=== PATIENT | female | born 1980 | race Caucasian/White ===

== ENCOUNTER 2017-11-12 10:59 | Emergency (ER) | payer MEDICAID ==
--- NOTE | 2017-11-12 11:11 | EDM.PDOC ---
ED HPI GENERAL MEDICAL PROBLEM - General Chief Complaint: Gastrointestinal Problem Stated Complaint: VOMITING Time Seen by Provider: 11/12/17 11:06 - History of Present Illness INITIAL COMMENTS - FREE TEXT/NARRATIVE: HISTORY AND PHYSICAL: History of present illness: Patient 36-year-old female presents with concerns generalized body aches nausea and vomiting she's had no cough sore throat or other concern she denies any chance of she's had no urinary symptoms no vaginal discharge or irregular bleeding. Review of systems: As per history of present illness and below otherwise all systems reviewed and negative. Past medical history: As per history of present illness and as reviewed below otherwise noncontributory. Surgical history: As per history of present illness and as reviewed below otherwise noncontributory. Social history: No reported history of drug or alcohol abuse. Family history: As per history of present illness and as reviewed below otherwise noncontributory. Physical exam: HEENT: Atraumatic, normocephalic, pupils reactive, negative for conjunctival pallor or scleral icterus, mucous membranes moist, throat clear, neck supple, nontender, trachea midline. Lungs: Clear to auscultation, breath sounds equal bilaterally, chest nontender. Heart: S1S2, regular, negative for clicks, rubs, or JVD. Abdomen: Soft, nondistended, nontender. Negative for masses or hepatosplenomegaly. Negative for costovertebral tenderness. Pelvis: Stable nontender. Genitourinary: Deferred. Rectal: Deferred. Extremities: Atraumatic, negative for cords or calf pain. Neurovascular unremarkable. Neuro: Awake, alert, oriented. Cranial nerves II through XII unremarkable. Cerebellum unremarkable. Motor and sensory unremarkable throughout. Exam nonfocal. Diagnostics: Influenza screen Therapeutics: Zofran 4 mg ODT Impression: #1 Vomiting #2 myalgia probable viral syndrome Definitive disposition and diagnosis as appropriate pending reevaluation and review of above. ED ROS GENERAL - Review of Systems Review Of Systems: ROS reveals no pertinent complaints other than HPI. ED EXAM, GENERAL - Physical Exam Exam: See Below (See dictation) Departure - Departure Time of Disposition: 11:10 Disposition: Home, Self-Care 01 Condition: Good Clinical Impression: Vomiting, Viral syndrome - Discharge Information Referrals: PCP,None [Primary Care Provider] - Additional Instructions: The following information is given to patients seen in the emergency department who are being discharged to home. This information is to outline your options for follow-up care. We provide all patients seen in our emergency department with a follow-up referral. The need for follow-up, as well as the timing and circumstances, are variable depending upon the specifics of your emergency department visit. If you don't have a primary care physician on staff, we will provide you with a referral. We always advise you to contact your personal physician following an emergency department visit to inform them of the circumstance of the visit and for follow-up with them and/or the need for any referrals to a consulting specialist. The emergency department will also refer you to a specialist when appropriate. This referral assures that you have the opportunity for followup care with a specialist. All of these measure are taken in an effort to provide you with optimal care, which includes your followup. Under all circumstances we always encourage you to contact your private physician who remains a resource for coordinating your care. When calling for followup care, please make the office aware that this follow-up is from your recent emergency room visit. If for any reason you are refused follow-up, please contact the [facility] emergency department at and asked to speak to the emergency department charge nurse. Zofran as prescribed push fluids clear liquids as discussed follow-up private medical doctor wanted today's return as needed as discussed
[2017-11-12] MEDS ORDERED: Ondansetron 4 MG Tab.DIS PO ONE (11:14)
== END 2017-11-12 11:59 | disposition home or self-care (01) ==
LOC: MW.ED 10:59
DX: B34.9 Viral infection, unspecified (principal); M79.1 Myalgia
CPT/HCPCS: 87804; 99283; A9270

== ENCOUNTER 2017-11-12 19:27 | Emergency (ER) | payer MEDICAID ==
[2017-11-12] MEDS ORDERED: LORazepam 2 MG/ML SDV IM ONE (20:01)
[2017-11-12] MEDS ORDERED: diphenhydrAMINE 50 MG Cap PO ONE (20:02)
[2017-11-12] MEDS ORDERED: Ketorolac 60 MG/2 ML SDV IM ONE (20:03)
[2017-11-12] MEDS ORDERED: Prochlorperazine 10 MG Tab PO ONE (20:03)
[2017-11-12] MEDS ORDERED: Prochlorperazine 10 MG/2 ML SDV IM ONE (20:07)
--- NOTE | 2017-11-12 20:07 | EDM.PDOC ---
ED HPI GENERAL MEDICAL PROBLEM - General Chief Complaint: Headache Stated Complaint: MIGRAINE Time Seen by Provider: 11/12/17 20:04 Source of Information: Reports: Patient History Limitations: Reports: No Limitations - History of Present Illness INITIAL COMMENTS - FREE TEXT/NARRATIVE: HISTORY AND PHYSICAL: []36-year-old female presenting with migraine headache since last night History of Present Illness: []Patient does have history of having migraines in the past and has been treated with the Benadryl Toradol combination Review of Systems: As per history of present illness and below otherwise all systems reviewed and negative. Past medical history: As per history of present illness and as reviewed below otherwise noncontributory. Surgical history: As per history of present illness and as reviewed below otherwise noncontributory. Social history: No reported history of drug or alcohol abuse. Family history: As per history of present illness and as reviewed below otherwise noncontributory. Physical exam: Patient is photophobic she is alert answering questions appropriately in full sentences no shortness breath noted HEENT: Atraumatic, normocehpalic, pupils reactive, negative for conjunctival pallor or scleral icterus, mucous membranes moist, throat clear, neck supple, nontender, trachea midline. Sclerae erythematous Lungs: Clear to auscultation, breath sounds equal bilaterally, chest non tender. Heart: S1S2, regular, negative for clicks, rubs, or JVD. Abdomen: Soft, nondistended, nontender. Negative for masses or hepatossplenmegaly. Negative for costovertebral tenderness. Pelvis: Stable nontender. Genitourinary: Deferred. Rectal: Deferred Extremities: Atraumatic, negative for cords or calf pain. Neurovascular unremarkable. Neuro: Awake, alert, oriented. Cranial nerves II through XII unremarkable. Cerebellum unremarkable. Motor and sensory unremarkable throughout. Exam nonfocal. Diagnostics: [] Therapeutics: []Toradol IM Ativan IM Benadryl by mouth Compazine by mouth Impression: [Migraine headache] Plan: [Discharged to home Sleep Follow-up with your primary care] Definitive disposition and diagnosis as appropriate pending reevaluation and review of above. Onset: Today, Sudden Duration: Hour(s):, Getting Worse Location: Reports: Head Headache Pain Score (Numeric/FACES): 10 - Related Data Allergies Allergy/AdvReac Type Severity Reaction Status Date / Time albuterol Allergy Airway Verified 12/23/17 19:36 Tightness morphine Allergy Itching Verified 11/12/17 19:36 Sulfa (Sulfonamide Allergy Bronchospas Verified 11/12/17 19:36 Antibiotics) ms Home Meds: Home Meds . [No Known Home Meds] 11/12/17 [History] Past Medical History Neurological History: Reports: Migraines Psychiatric History: Reports: Anxiety, Depression Social & Family History - Family History Family Medical History: Noncontributory - Tobacco Use Smoking Status *Q: Never Smoker - Caffeine Use Caffeine Use: Reports: Soda - Recreational Drug Use Recreational Drug Use: No ED ROS GENERAL - Review of Systems Review Of Systems: ROS reveals no pertinent complaints other than HPI. - Physical Exam Exam: See Below (See dictation) Course - Vital Signs Last Recorded V/S: Last Vital Signs Temp 36.3 C 11/12/17 19:37 Pulse 68 11/12/17 19:37 Resp 18 11/12/17 19:37 BP 125/76 11/12/17 19:37 Pulse Ox 94 L 11/12/17 19:37 - Orders/Labs/Meds Orders: Active Orders 24 hr Category Date Time Status Ketorolac [Toradol] Med 11/12/17 20:03 Once 60 mg IM ONETIME ONE Prochlorperazine [Compazine] Med 11/12/17 20:03 Once 10 mg PO ONETIME ONE Medication Orders Ketorolac Tromethamine (Toradol) 60 mg IM ONETIME ONE Stop: 11/12/17 20:04 Prochlorperazine Maleate (Compazine) 10 mg PO ONETIME ONE Stop: 11/12/17 20:04 Meds: Medications Generic Name Dose Route Start Last Admin Trade Name Freq PRN Reason Stop Dose Admin Ketorolac Tromethamine 60 mg 11/12/17 20:03 Toradol IM 11/12/17 20:04 ONETIME ONE Prochlorperazine Maleate 10 mg 11/12/17 20:03 Compazine PO 11/12/17 20:04 ONETIME ONE Discontinued Medications Generic Name Dose Route Start Last Admin Trade Name Freq PRN Reason Stop Dose Admin Diphenhydramine HCl 50 mg 11/12/17 20:02 Benadryl PO 11/12/17 20:03 ONETIME ONE Lorazepam 1 mg 11/12/17 20:01 Ativan IM 11/12/17 20:02 ONETIME ONE Departure - Departure Time of Disposition: 20:06 Disposition: Home, Self-Care 01 Condition: Good Clinical Impression: Migraine - Discharge Information Referrals: PCP,None [Primary Care Provider] - Additional Instructions: The following information is given to patients seen in the emergency department who are being discharged to home. This information is to outline your options for follow-up care. We provide all patients seen in our emergency department with a follow-up referral. The need for follow-up, as well as the timing and circumstances, are variable depending upon the specifics of your emergency department visit. If you don't have a primary care physician on staff, we will provide you with a referral. We always advise you to contact your personal physician following an emergency department visit to inform them of the circumstance of the visit and for follow-up with them and/or the need for any referrals to a consulting specialist. The emergency department will also refer you to a specialist when appropriate. This referral assures that you have the opportunity for followup care with a specialist. All of these measure are taken in an effort to provide you with optimal care, which includes your followup. Under all circumstances we always encourage you to contact your private physician who remains a resource for coordinating your care. When calling for followup care, please make the office aware that this follow-up is from your recent emergency room visit. If for any reason you are refused follow-up, please contact the [facility] emergency department at and asked to speak to the emergency department charge nurse. Your treated for your migraine headache while in the emergency department Follow-up with your primary care provider next week - My Orders Last 24 Hours: My Active Orders 11/12/17 20:03 Ketorolac [Toradol] 60 mg IM ONETIME ONE Prochlorperazine [Compazine] 10 mg PO ONETIME ONE - Assessment/Plan Last 24 Hours: My Active Orders 11/12/17 20:03 Ketorolac [Toradol] 60 mg IM ONETIME ONE Prochlorperazine [Compazine] 10 mg PO ONETIME ONE
== END 2017-11-12 20:25 | disposition home or self-care (01) ==
LOC: MW.ED 19:27
DX: G43.909 Migraine, unspecified, not intractable, without status migrainosus (principal); Z88.5 Allergy status to narcotic agent; Z88.2 Allergy status to sulfonamides
CPT/HCPCS: 96372; 99283; A9270; J0780; J1885; J2060

== ENCOUNTER 2018-05-09 10:21 | Emergency (ER) | payer MEDICAID ==
[2018-05-09] MEDS ORDERED: LORazepam 1 MG Tab PO ONE (10:47)
[2018-05-09] MEDS ORDERED: diphenhydrAMINE 50 MG Cap PO ONE (10:48)
[2018-05-09] MEDS ORDERED: Prochlorperazine 10 MG/2 ML SDV IM ONE (10:48)
--- NOTE | 2018-05-09 10:48 | EDM.PDOC ---
ED HPI GENERAL MEDICAL PROBLEM - General Chief Complaint: Headache Stated Complaint: HEADACHE,NAUSEA,VOMITING Time Seen by Provider: 05/09/18 10:44 Source of Information: Reports: Patient History Limitations: Reports: No Limitations - History of Present Illness INITIAL COMMENTS - FREE TEXT/NARRATIVE: HISTORY AND PHYSICAL: []37-year-old female presenting with a migraine headache History of Present Illness: []Patient has had similar headaches in the past this is not different she awakened yesterday with this headache She began having vomiting last night with a awakened this morning and the headache is still present stripe your pain as a 08/30 She was seen recently in the emergency department and the medication regimen that she was given at that time did She relates that she has a ride to pick her up And she states that she has her girlfriend watching her children at this time she will be able to go home and sleep Review of Systems: As per history of present illness and below otherwise all systems reviewed and negative. Past medical history: As per history of present illness and as reviewed below otherwise noncontributory. Surgical history: As per history of present illness and as reviewed below otherwise noncontributory. Social history: No reported history of drug or alcohol abuse. Family history: As per history of present illness and as reviewed below otherwise noncontributory. Physical exam: HEENT: Atraumatic, normocehpalic, pupils reactive, negative for conjunctival pallor or scleral icterus, mucous membranes moist, throat clear, neck supple, nontender, trachea midline. Lungs: Clear to auscultation, breath sounds equal bilaterally, chest non tender. Heart: S1S2, regular, negative for clicks, rubs, or JVD. Abdomen: Soft, nondistended, nontender. Negative for masses or hepatossplenmegaly. Negative for costovertebral tenderness. Pelvis: Stable nontender. Genitourinary: Deferred. Rectal: Deferred Extremities: Atraumatic, negative for cords or calf pain. Neurovascular unremarkable. Neuro: Awake, alert, oriented. Cranial nerves II through XII unremarkable. Cerebellum unremarkable. Motor and sensory unremarkable throughout. Exam nonfocal. Diagnostics: [] Therapeutics: []Ativan by mouth Benadryl by mouth Compazine IM Toradol IM Impression: []Headache Plan: []Discharged home Referred to Dr. Roxann Randolph for follow-up evaluation Definitive disposition and diagnosis as appropriate pending reevaluation and review of above. Onset: Sudden Duration: Day(s): (1), Getting Worse Location: Reports: Head Quality: Reports: Same as Previous Episode Improves with: Reports: None Worsens with: Reports: Movement Associated Symptoms: Reports: Nausea/Vomiting Head Pain Score (Numeric/FACES): 10 - Related Data Allergies Allergy/AdvReac Type Severity Reaction Status Date / Time albuterol Allergy Airway Verified 05/09/18 10:30 Tightness morphine Allergy Itching Verified 05/09/18 10:30 Sulfa (Sulfonamide Allergy Bronchospas Verified 05/09/18 10:30 Antibiotics) ms Home Meds: Home Meds . [No Known Home Meds] 11/12/17 [History] Past Medical History Neurological History: Reports: Migraines Psychiatric History: Reports: Anxiety, Depression - Infectious Disease History Infectious Disease History: Reports: None Social & Family History - Family History Family Medical History: Noncontributory - Tobacco Use Smoking Status *Q: Never Smoker - Caffeine Use Caffeine Use: Reports: Coffee, Soda - Recreational Drug Use Recreational Drug Use: No ED ROS GENERAL - Review of Systems Review Of Systems: ROS reveals no pertinent complaints other than HPI. - Physical Exam Exam: See Below (See dictation) Course - Vital Signs Last Recorded V/S: Last Vital Signs Temp 36.2 C 05/09/18 10:30 Pulse 77 05/09/18 10:30 Resp 14 05/09/18 10:30 BP 124/85 05/09/18 10:30 Pulse Ox 95 05/09/18 10:30 - Orders/Labs/Meds Orders: Active Orders 24 hr Category Date Time Status Ketorolac [Toradol] Med 05/09/18 10:49 Once 60 mg IM ONETIME ONE Medication Orders Ketorolac Tromethamine (Toradol) 60 mg IM ONETIME ONE Stop: 05/09/18 10:50 Meds: Medications Generic Name Dose Route Start Last Admin Trade Name Freq PRN Reason Stop Dose Admin Ketorolac Tromethamine 60 mg 05/09/18 10:49 Toradol IM 05/09/18 10:50 ONETIME ONE Discontinued Medications Generic Name Dose Route Start Last Admin Trade Name Freq PRN Reason Stop Dose Admin Diphenhydramine HCl 50 mg 05/09/18 10:48 Benadryl PO 05/09/18 10:49 ONETIME ONE Lorazepam 1 mg 05/09/18 10:47 Ativan PO 05/09/18 10:48 ONETIME ONE Prochlorperazine Edisylate 10 mg 05/09/18 10:48 Compazine IM 05/09/18 10:49 ONETIME ONE Departure - Departure Time of Disposition: 10:47 Disposition: Home, Self-Care 01 Condition: Good Clinical Impression: Migraine - Discharge Information Instructions: Recurrent Migraine Headache, [id number] Referrals: PCP,None [Primary Care Provider] - Roxann Randolph MD [Physician] - Forms: ED Department Discharge - My Orders Last 24 Hours: My Active Orders 05/09/18 10:49 Ketorolac [Toradol] 60 mg IM ONETIME ONE - Assessment/Plan Last 24 Hours: My Active Orders 05/09/18 10:49 Ketorolac [Toradol] 60 mg IM ONETIME ONE
[2018-05-09] MEDS ORDERED: Ketorolac 60 MG/2 ML SDV IM ONE (10:49)
== END 2018-05-09 11:33 | disposition home or self-care (01) ==
LOC: MW.ED 10:21
DX: G43.909 Migraine, unspecified, not intractable, without status migrainosus (principal); Z88.5 Allergy status to narcotic agent; Z88.8 Allergy status to other drugs, medicaments and biological substances
CPT/HCPCS: 96372; 99283; A9270; J0780; J1885

== ENCOUNTER 2019-01-11 19:15 | Emergency (ER) | payer MEDICAID ==
--- NOTE | 2019-01-11 20:18 | EDM.PDOC ---
ED HPI GENERAL MEDICAL PROBLEM - General Chief Complaint: Genitourinary Problem Stated Complaint: PT HAS INFECTION Time Seen by Provider: 01/11/19 20:08 - History of Present Illness INITIAL COMMENTS - FREE TEXT/NARRATIVE: HISTORY AND PHYSICAL: History of present illness: Patient 38-year-old white female presents with concern of possible skin infection she had 2 skin tags removed from her right labia yesterday the sutures that were in place a single suture and 1 per patient dehisced. She's concerned about infection has had some minor pain with this. Review of systems: As per history of present illness and below otherwise all systems reviewed and negative. Past medical history: As per history of present illness and as reviewed below otherwise noncontributory. Surgical history: As per history of present illness and as reviewed below otherwise noncontributory. Social history: No reported history of drug or alcohol abuse. Family history: As per history of present illness and as reviewed below otherwise noncontributory. Physical exam: HEENT: Atraumatic, normocephalic, pupils reactive, negative for conjunctival pallor or scleral icterus, mucous membranes moist, throat clear, neck supple, nontender, trachea midline. Lungs: Clear to auscultation, breath sounds equal bilaterally, chest nontender. Heart: S1S2, regular, negative for clicks, rubs, or JVD. Abdomen: Soft, nondistended, nontender. Negative for masses or hepatosplenomegaly. Negative for costovertebral tenderness. Pelvis: Stable nontender. Genitourinary: Patient has 2 small areas of excoriation on her right labia approximately less than 1 cm there is some small erythema. No fluctuance no induration Rectal: Deferred. Extremities: Atraumatic, negative for cords or calf pain. Neurovascular unremarkable. Neuro: Awake, alert, oriented. Cranial nerves II through XII unremarkable. Cerebellum unremarkable. Motor and sensory unremarkable throughout. Exam nonfocal. Diagnostics: None Therapeutics: None Impression: #1 medical screening exam #2 rule out early superficial cellulitis right labia Definitive disposition and diagnosis as appropriate pending reevaluation and review of above. vaginal area Pain Score (Numeric/FACES): 10 - Related Data Allergies Allergy/AdvReac Type Severity Reaction Status Date / Time albuterol Allergy Airway Verified 01/11/19 20:08 Tightness morphine Allergy Itching Verified 01/11/19 20:08 Sulfa (Sulfonamide Allergy Bronchospas Verified 01/11/19 20:08 Antibiotics) ms Home Meds: Home Meds . [No Known Home Meds] 11/12/17 [History] Past Medical History Neurological History: Reports: Migraines Psychiatric History: Reports: Anxiety, Depression - Infectious Disease History Infectious Disease History: Reports: None Social & Family History - Family History Family Medical History: Noncontributory - Caffeine Use Caffeine Use: Reports: Coffee, Soda ED ROS GENERAL - Review of Systems Review Of Systems: ROS reveals no pertinent complaints other than HPI. ED EXAM, GENERAL - Physical Exam Exam: See Below (See dictation) Course - Vital Signs Last Recorded V/S: Last Vital Signs Temp 36.1 C 01/11/19 20:08 Pulse 74 01/11/19 20:08 Resp 18 01/11/19 20:08 BP 110/90 01/11/19 20:08 Pulse Ox 98 01/11/19 20:08 Departure - Departure Time of Disposition: 20:14 Disposition: Home, Self-Care 01 Condition: Good Clinical Impression: Cellulitis - Discharge Information Referrals: PCP,None [Primary Care Provider] - Additional Instructions: The following information is given to patients seen in the emergency department who are being discharged to home. This information is to outline your options for follow-up care. We provide all patients seen in our emergency department with a follow-up referral. The need for follow-up, as well as the timing and circumstances, are variable depending upon the specifics of your emergency department visit. If you don't have a primary care physician on staff, we will provide you with a referral. We always advise you to contact your personal physician following an emergency department visit to inform them of the circumstance of the visit and for follow-up with them and/or the need for any referrals to a consulting specialist. The emergency department will also refer you to a specialist when appropriate. This referral assures that you have the opportunity for followup care with a specialist. All of these measure are taken in an effort to provide you with optimal care, which includes your followup. Under all circumstances we always encourage you to contact your private physician who remains a resource for coordinating your care. When calling for followup care, please make the office aware that this follow-up is from your recent emergency room visit. If for any reason you are refused follow-up, please contact the [facility] emergency department at and asked to speak to the emergency department charge nurse. Ultram Keflex as prescribed follow primary medical doctor as needed as discussed local wound care as discussed return as needed as discussed
== END 2019-01-11 20:25 | disposition home or self-care (01) ==
LOC: MW.ED 19:15
DX: N76.2 Acute vulvitis (principal); Z88.8 Allergy status to other drugs, medicaments and biological substances; Z88.5 Allergy status to narcotic agent; Z88.2 Allergy status to sulfonamides
CPT/HCPCS: 99283

== ENCOUNTER 2019-11-26 14:29 | Emergency (ER) | payer MEDICAID ==
[2019-11-26] MEDS ORDERED: Acetaminophen/Codeine 300-30 MG Tab PO ONE (15:28)
--- NOTE | 2019-11-26 15:41 | EDM.PDOC ---
ED HPI GENERAL MEDICAL PROBLEM - General Chief Complaint: Lower Extremity Injury/Pain Stated Complaint: SWELLING/BRUISING ON CALF Time Seen by Provider: 11/26/19 15:20 Source of Information: Reports: Patient History Limitations: Reports: No Limitations - History of Present Illness INITIAL COMMENTS - FREE TEXT/NARRATIVE: HISTORY AND PHYSICAL: History of present illness: Patient is a 39-year-old female who presents to the emergency room today with complaints of left calf pain and tenderness. She states yesterday she noticed discomfort but that she may have pulled a muscle or hit it on something (doesn' t recall injury/trauma). Last evening she states the area was red and hot to touch. Today the calf is tender to palpation and semi-firm to touch. Patient denies any fever, chills, headache, change in vision, syncope or near syncope. Denies any chest pain, back pain, shortness of breath or cough. Denies any abdominal pain, nausea, vomiting, diarrhea, constipation or dysuria. Has not noted any blood in urine or stool. Patient has been eating and drinking appropriately. No recent travel or long periods of standing/sitting. No hormone replacement therapy. No known personal or familial history of blood/clotting disorders. Review of systems: As per history of present illness and below otherwise all systems reviewed and negative. Past medical history: As per history of present illness and as reviewed below otherwise noncontributory. Surgical history: As per history of present illness and as reviewed below otherwise noncontributory. Social history: See social history for further information Family history: As per history of present illness and as reviewed below otherwise noncontributory. Physical exam: General: Well-developed well-nourished 39-year-old female. Alert and oriented. Nontoxic-appearing and in no acute distress HEENT: Atraumatic, normocephalic, pupils equal and reactive bilaterally, negative for conjunctival pallor or scleral icterus, mucous membranes moist, TMs normal bilaterally, throat clear, neck supple, nontender, trachea midline. No drooling or trismus noted. No meningeal signs. No hot potato voice noted. Lungs: Clear to auscultation, breath sounds equal bilaterally, chest nontender. Heart: S1S2, regular rate and rhythm without overt murmur Abdomen: Soft, nondistended, nontender. Negative for masses or hepatosplenomegaly. Negative for costovertebral tenderness. Skin: Intact, warm, dry. No lesions or rashes noted. Extremities: Atraumatic, moves all extremities per self without difficulty or deficits, negative for cords. Does have tenderness to the mid belly of the left calf and does feel semi-firm to palpation with light bruising noted. Neurovascular unremarkable. Neuro: Awake, alert, oriented. Cranial nerves II through XII unremarkable. Cerebellum unremarkable. Motor and sensory unremarkable throughout. Exam nonfocal. Notes: Lab work is unremarkable. US shows a blood clot within the lesser saphenous vein compatible with superficial thrombophlebitis. No evidence of DVT. I did talk with Dr. Ram about performing some labs that would be available for primary care for further evaluation and she does not have very many risk factors for blood clot. Anticoagulation is not contraindicated. Nursing staff did call to set her up a follow-up appointment. Signs ans symptoms that would prompt her to return were reviewed and discussed. Supportive care measures were reviewed and discussed. Voices understanding and is agreeable to plan of care. Denies any further questions or concerns at this time. Diagnostics: CBC, CMP, ultrasound lower extremity Therapeutics: Tylenol #3, Lovenox Prescription: Tramadol, Eliquist Impression: Superficial thrombophlebitis Plan: 1. Eliquis 5mg twice daily; limited amount prescribed. Length of need with be determined by your primary care provider. We made you a follow up appointment with Dr Evans at [facility] 3:45pm on Tuesday11/28/2018. Make sure you ask if you need further refills of the Eliquis 2. Your outpatient labs should be available to her at that time. 3. Rest and elevate lower extremity as able. 4. Return to the ED as needed as discussed. Definitive disposition and diagnosis as appropriate pending reevaluation and review of above. L calf Pain Score (Numeric/FACES): 10 - Related Data Allergies Allergy/AdvReac Type Severity Reaction Status Date / Time albuterol Allergy Airway Verified 11/26/19 14:41 Tightness morphine Allergy Itching Verified 11/26/19 14:41 Sulfa (Sulfonamide Allergy Bronchospas Verified 11/26/19 14:41 Antibiotics) ms Home Meds: Home Meds Apixaban [Eliquis] 5 mg PO BID #14 tablet 11/26/19 [Rx] Mirtazapine 25 mg PO ASDIRECTED 11/26/19 [History] QUEtiapine Fumarate [Seroquel] 50 mg PO ASDIRECTED 11/26/19 [History] hydrOXYzine HCL [Atarax] 50 mg PO ASDIRECTED 11/26/19 [History] traMADol [Ultram] 50 mg PO Q4H PRN #15 tab 11/26/19 [Rx] Past Medical History HEENT History: Reports: None Cardiovascular History: Reports: None Respiratory History: Reports: None Gastrointestinal History: Reports: None Genitourinary History: Reports: None 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 Musculoskeletal History: Reports: None Neurological History: Reports: Migraines Psychiatric History: Reports: Anxiety, Depression Endocrine/Metabolic History: Reports: None Hematologic History: Reports: None Immunologic History: Reports: None Oncologic (Cancer) History: Reports: None Dermatologic History: Reports: None - Infectious Disease History Infectious Disease History: Reports: None Social & Family History - Family History Family Medical History: Noncontributory - Tobacco Use Smoking Status *Q: Never Smoker Second Hand Smoke Exposure: No - Caffeine Use Caffeine Use: Reports: None - Recreational Drug Use Recreational Drug Use: No Review of Systems - Review of Systems Review Of Systems: Comprehensive ROS is negative, except as noted in HPI. ED EXAM, GENERAL - Physical Exam Exam: See Below (See dictation) Course - Vital Signs Last Recorded V/S: Last Vital Signs Temp 98.0 F 11/26/19 17:39 Pulse 70 11/26/19 17:39 Resp 16 11/26/19 17:39 BP 115/84 11/26/19 17:39 Pulse Ox 98 11/26/19 17:39 - Orders/Labs/Meds Orders: Active Orders 24 hr Category Date Time Status ANTITHROMBIN ACTIVITY [REF] Stat Lab 11/26/19 16:44 Ordered APTT [REF] Stat Lab 11/26/19 16:44 Ordered FACTOR V LEIDEN MUTATION [REF] Stat Lab 11/26/19 16:44 Ordered HOMOCYST(E)INE, PLASMA [REF] Stat Lab 11/26/19 16:44 Ordered PROTEIN C ANTIGEN [REF] Stat Lab 11/26/19 16:44 Ordered PROTEIN S-FUNCTIONAL [REF] Stat Lab 11/26/19 16:44 Ordered Labs: Laboratory Tests 11/26/19 11/26/19 11/26/19 Range/Units 15:40 15:40 15:40 WBC 6.94 (4.0-11.0) K/uL RBC 4.46 (4.30-5.90) M/uL Hgb 13.5 (12.0-16.0) g/dL Hct 40.3 (36.0-46.0) % MCV 90.4 (80.0-98.0) fL MCH 30.3 (27.0-32.0) pg MCHC 33.5 (31.0-37.0) g/dL RDW Std Deviation 44.3 (28.0-62.0) fl RDW Coeff of Cu[place]htemoc 13 (11.0-15.0) % Plt Count 201 (150-400) K/uL MPV 10.80 (7.40-12.00) fL Neut % (Auto) 57.6 (48.0-80.0) % Lymph % (Auto) 31.7 (16.0-40.0) % [place] % (Auto) 9.9 (0.0-15.0) % Eos % (Auto) 0.7 (0.0-7.0) % Baso % (Auto) 0.1 (0.0-1.5) % Neut # (Auto) 4.0 (1.4-5.7) K/uL Lymph # (Auto) 2.2 (0.6-2.4) K/uL [place] # (Auto) 0.7 (0.0-0.8) K/uL Eos # (Auto) 0.1 (0.0-0.7) K/uL Baso # (Auto) 0.0 (0.0-0.1) K/uL Nucleated RBC % 0.0 /100WBC Nucleated RBCs # 0 K/uL INR 0.90 APTT (18.6-31.3) SEC Fibrinogen (215-411) mg/dL Sodium 141 (136-145) mmol/L Potassium 3.7 (3.5-5.1) mmol/L Chloride 104 (98-107) mmol/L Carbon Dioxide 27.3 (21.0-32.0) mmol/L BUN 14 (7.0-18.0) mg/dL Creatinine 0.9 (0.6-1.0) mg/dL Est Cr Clr Drug Dosing 93.80 mL/min Estimated GFR (MDRD) > 60.0 ml/min Glucose 91 (74-106) mg/dL Calcium 9.1 (8.5-10.1) mg/dL Total Bilirubin 0.2 (0.2-1.0) mg/dL AST 22 (15-37) IU/L ALT 35 (14-63) IU/L Alkaline Phosphatase 95 (46-116) U/L Total Protein 8.2 (6.4-8.2) g/dL Albumin 3.6 (3.4-5.0) g/dL Globulin 4.6 H (2.6-4.0) g/dL Albumin/Globulin Ratio 0.8 L (0.9-1.6) 11/26/19 Range/Units 17:30 WBC (4.0-11.0) K/uL RBC (4.30-5.90) M/uL Hgb (12.0-16.0) g/dL Hct (36.0-46.0) % MCV (80.0-98.0) fL MCH (27.0-32.0) pg MCHC (31.0-37.0) g/dL RDW Std Deviation (28.0-62.0) fl RDW Coeff of [place] (11.0-15.0) % Plt Count (150-400) K/uL MPV (7.40-12.00) fL Neut % (Auto) (48.0-80.0) % Lymph % (Auto) (16.0-40.0) % [place] % (Auto) (0.0-15.0) % Eos % (Auto) (0.0-7.0) % Baso % (Auto) (0.0-1.5) % Neut # (Auto) (1.4-5.7) K/uL Lymph # (Auto) (0.6-2.4) K/uL [place] # (Auto) (0.0-0.8) K/uL Eos # (Auto) (0.0-0.7) K/uL Baso # (Auto) (0.0-0.1) K/uL Nucleated RBC % /100WBC Nucleated RBCs # K/uL INR APTT 25.1 (18.6-31.3) SEC Fibrinogen 292 (215-411) mg/dL Sodium (136-145) mmol/L Potassium (3.5-5.1) mmol/L Chloride (98-107) mmol/L Carbon Dioxide (21.0-32.0) mmol/L BUN (7.0-18.0) mg/dL Creatinine (0.6-1.0) mg/dL Est Cr Clr Drug Dosing mL/min Estimated GFR (MDRD) ml/min Glucose (74-106) mg/dL Calcium (8.5-10.1) mg/dL Total Bilirubin (0.2-1.0) mg/dL AST (15-37) IU/L ALT (14-63) IU/L Alkaline Phosphatase (46-116) U/L Total Protein (6.4-8.2) g/dL Albumin (3.4-5.0) g/dL Globulin (2.6-4.0) g/dL Albumin/Globulin Ratio (0.9-1.6) Meds: Medications Discontinued Medications Generic Name Dose Route Start Last Admin Trade Name Freq PRN Reason Stop Dose Admin Acetaminophen/Codeine Phosphate 1 tab 11/26/19 15:28 11/26/19 15:41 Tylenol With Codeine No.3 300mg/30mg PO 11/26/19 15:29 1 tab ONETIME ONE Administration Enoxaparin Sodium 90 mg 11/26/19 17:01 11/26/19 17:38 Lovenox SUBCUT 11/26/19 17:02 90 mg ONETIME ONE Administration Departure - Departure Time of Disposition: 17:00 Disposition: Home, Self-Care 01 Clinical Impression: Superficial thrombophlebitis Qualifiers: Superficial thrombophlebitis-Involved body area: lower extremity Laterality: left Qualified Code(s): I80.02 - Phlebitis and thrombophlebitis of superficial vessels of left lower extremity - Discharge Information Prescriptions: Apixaban [Eliquis] 5 mg PO BID #14 tablet traMADol [Ultram] 50 mg PO Q4H PRN #15 tab PRN Reason: Pain Instructions: Deep Vein Thrombosis Referrals: PCP,None [Primary Care Provider] - Forms: ED Department Discharge Additional Instructions: The following information is given to patients seen in the emergency department who are being discharged to home. This information is to outline your options for follow-up care. We provide all patients seen in our emergency department with a follow-up referral. The need for follow-up, as well as the timing and circumstances, are variable depending upon the specifics of your emergency department visit. If you don't have a primary care physician on staff, we will provide you with a referral. We always advise you to contact your personal physician following an emergency department visit to inform them of the circumstance of the visit and for follow-up with them and/or the need for any referrals to a consulting specialist. The emergency department will also refer you to a specialist when appropriate. This referral assures that you have the opportunity for follow-up care with a specialist. All of these measure are taken in an effort to provide you with optimal care, which includes your follow-up. Under all circumstances we always encourage you to contact your private physician who remains a resource for coordinating your care. When calling for follow-up care, please make the office aware that this follow-up is from your recent emergency room visit. If for any reason you are refused follow-up, please contact the [facility] Emergency Department at and asked to speak to the emergency department charge nurse. [facility] [address] [place] [id number] [place] [address] 1. Eliquis 5mg twice daily; limited amount prescribed. Length of need with be determined by your primary care provider. We made you a follow up appointment with Dr Evans at [facility] 3:45pm on Tuesday11/28/2018. Make sure you ask if you need further refills of the Eliquis 2. Your outpatient labs should be available to her at that time. 3. Rest and elevate lower extremity as able. 4. Return to the ED as needed as discussed. Sepsis Event Note - Evaluation Sepsis Screening Result: No Definite Risk - Focused Exam Vital Signs: Vital Signs Temp Pulse Resp BP Pulse Ox 11/26/19 17:39 98.0 F 70 16 115/84 98 11/26/19 14:43 98.2 F 84 16 129/83 95 Date Exam was Performed: 11/26/19 Time Exam was Performed: 21:22 - My Orders Last 24 Hours: My Active Orders 11/26/19 16:44 ANTITHROMBIN ACTIVITY [REF] Stat APTT [REF] Stat FACTOR V LEIDEN MUTATION [REF] Stat HOMOCYST(E)INE, PLASMA [REF] Stat PROTEIN C ANTIGEN [REF] Stat PROTEIN S-FUNCTIONAL [REF] Stat - Assessment/Plan Last 24 Hours: My Active Orders 11/26/19 16:44 ANTITHROMBIN ACTIVITY [REF] Stat APTT [REF] Stat FACTOR V LEIDEN MUTATION [REF] Stat HOMOCYST(E)INE, PLASMA [REF] Stat PROTEIN C ANTIGEN [REF] Stat PROTEIN S-FUNCTIONAL [REF] Stat
[2019-11-26 16:27] LABS: BLOOD UREA NITROGEN,BUN 14 mg/dL (7.0-18.0); CARBON DIOXIDE,CO2 27.3 mmol/L (21.0-32.0); CHLORIDE,CL 104 mmol/L (98-107); GLUCOSE RANDOM 91 mg/dL (74-106); POTASSIUM,K 3.7 mmol/L (3.5-5.1); SODIUM,NA 141 mmol/L (136-145)
--- NOTE | 2019-11-26 16:34 | US ---
Left lower extremity deep venous ultrasound: Duplex and color Doppler evaluation was obtained of the left common femoral, superficial femoral, popliteal, posterior tibial and peroneal veins. Lesser saphenous vein was evaluated which shows evidence of thrombus. Deep vein show normal augmentation and Doppler blood flow. Impression: 1. Clot within the lesser saphenous vein compatible with superficial thrombophlebitis. 2. No evidence of deep venous thrombosis within the left lower extremity. Diagnostic code #3 This report was dictated in Mountain Standard Time
[2019-11-26] MEDS ORDERED: Enoxaparin 100 MG/1 ML Syringe SUBCUT ONE (17:01)
== END 2019-11-26 17:42 | disposition home or self-care (01) ==
LOC: MW.ED 14:29
DX: I80.02 Phlebitis and thrombophlebitis of superficial vessels of left lower extremity (principal); F32.9 Major depressive disorder, single episode, unspecified; Z79.899 Other long term (current) drug therapy; Z88.2 Allergy status to sulfonamides; Z88.6 Allergy status to analgesic agent; Z88.8 Allergy status to other drugs, medicaments and biological substances
CPT/HCPCS: 36415; 80053; 81241; 83090; 85025; 85300; 85302; 85306; 85384; 85610; 85730; 93971; 96372; 99284; A9270; J1650

== ENCOUNTER 2020-04-14 16:56 | Emergency (ER) | payer MEDICAID, OTHER ==
[2020-04-14] MEDS ORDERED: Bacitracin Oint 1 GM U/D Packet TOP ONE (17:07)
--- NOTE | 2020-04-14 17:11 | EDM.PDOC ---
ED HPI GENERAL MEDICAL PROBLEM - General Chief Complaint: Burn Stated Complaint: right hand burn Time Seen by Provider: 04/14/20 16:57 Source of Information: Reports: Patient History Limitations: Reports: No Limitations - History of Present Illness INITIAL COMMENTS - FREE TEXT/NARRATIVE: HISTORY AND PHYSICAL: History of present illness: Patient is a 39-year-old female who presents to the emergency room with complaints of a burn to the dorsal aspect of her right hand. She states while at work some grease had splashed up resulting in the burn. Her tetanus is up-to -date. Burn is localized to the right hand. Patient denies any fever, chills, headache, change in vision, syncope or near syncope. Denies any chest pain, back pain, shortness of breath or cough. Denies any GI or symptoms. Tetanus is up-to-date. Review of systems: As per history of present illness and below otherwise all systems reviewed and negative. Past medical history: As per history of present illness and as reviewed below otherwise noncontributory. Surgical history: As per history of present illness and as reviewed below otherwise noncontributory. Social history: See social history for further information Family history: As per history of present illness and as reviewed below otherwise noncontributory. Physical exam: General: Well developed and well nourished 39-year-old female. Alert and oriented. Nontoxic-appearing and in no acute distress. HEENT: Atraumatic, normocephalic, pupils equal and reactive bilaterally, negative for conjunctival pallor or scleral icterus, mucous membranes moist, TMs normal bilaterally, throat clear, neck supple, nontender, trachea midline. No drooling or trismus noted. No meningeal signs. No hot potato voice noted. Lungs: Clear to auscultation, breath sounds equal bilaterally, chest nontender. Heart: S1S2, regular rate and rhythm without overt murmur Abdomen: Soft, nondistended, nontender. Skin: Noncircumferential second degree burn noted to dorsal aspect of right hand. Otherwise remaining skin is intact, warm, dry. No lesions or rashes noted. Extremities: Atraumatic, moves all extremities per self without difficulty or deficits, negative for cords or calf pain. Neurovascular unremarkable. Neuro: Awake, alert, oriented. Cranial nerves II through XII unremarkable. Cerebellum unremarkable. Motor and sensory unremarkable throughout. Exam nonfocal. Notes: Foot allergy. Wound care was provided here. Wound care and supportive care measures were reviewed and discussed. Voices understanding and is agreeable to plan of care. Denies any further questions or concerns at this time. Diagnostics: None Therapeutics: Wound care, bacitracin Prescription: None Impression: Burn Plan: 1. Keep the skin clean and dry. Apply topical bacitracin ointment twice daily over the next 1 week. Continue to monitor the skin closely as we discussed. 2. Tylenol and/or ibuprofen as needed for pain. [place] 1 -2 tabs every 4-6 hours as needed for severe pain. This medication may cause drowsiness so do not take it while driving or needing to be functioning outside of the house. 3. Follow-up with your primary care provider as we discussed. Return to the ED as needed and as discussed. Definitive disposition and diagnosis as appropriate pending reevaluation and review of above. Onset: Today Duration: Minutes: R hand Pain Score (Numeric/FACES): 10 - Related Data Allergies Allergy/AdvReac Type Severity Reaction Status Date / Time albuterol Allergy Airway Verified 04/14/20 17:10 Tightness morphine Allergy Itching Verified 04/14/20 17:10 Sulfa (Sulfonamide Allergy Bronchospas Verified 04/14/20 17:10 Antibiotics) ms Home Meds: Home Meds Apixaban [Eliquis] 5 mg PO BID #14 tablet 11/26/19 [Rx] Mirtazapine 25 mg PO ASDIRECTED 11/26/19 [History] QUEtiapine Fumarate [Seroquel] 50 mg PO ASDIRECTED 11/26/19 [History] hydrOXYzine HCL [Atarax] 50 mg PO ASDIRECTED 11/26/19 [History] traMADol [Ultram] 50 mg PO Q4H PRN #15 tab 11/26/19 [Rx] Past Medical History HEENT History: Reports: None Cardiovascular History: Reports: None Respiratory History: Reports: None Gastrointestinal History: Reports: None Genitourinary History: Reports: None 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 Musculoskeletal History: Reports: None Neurological History: Reports: Migraines Psychiatric History: Reports: Anxiety, Depression Endocrine/Metabolic History: Reports: None Hematologic History: Reports: None Immunologic History: Reports: None Oncologic (Cancer) History: Reports: None Dermatologic History: Reports: None - Infectious Disease History Infectious Disease History: Reports: None Social & Family History - Family History Family Medical History: Noncontributory - Caffeine Use Caffeine Use: Reports: None ED ROS GENERAL - Review of Systems Review Of Systems: Comprehensive ROS is negative, except as noted in HPI. ED EXAM, BURN/SMOKE INHALATION - Physical Exam Exam: See Below (See dictation) Course - Vital Signs Last Recorded V/S: Last Vital Signs Temp 96.2 F L 04/14/20 17:00 Pulse 69 04/14/20 17:00 Resp 17 04/14/20 17:00 BP 113/82 04/14/20 17:00 Pulse Ox 97 04/14/20 17:00 - Orders/Labs/Meds Meds: Medications Discontinued Medications Generic Name Dose Route Start Last Admin Trade Name Freq PRN Reason Stop Dose Admin Bacitracin 1 dose 04/14/20 17:07 Bacitracin Oint 1 Gm TOP 04/14/20 17:08 ONETIME ONE Departure - Departure Time of Disposition: 17:14 Disposition: Home, Self-Care 01 Clinical Impression: Burn of hand Qualifiers: Encounter type: initial encounter Burn of hand location: dorsum Laterality: right Burn degree: partial thickness (2nd degree) Qualified Code(s): T23.261A - Burn of second degree of back of right hand, initial encounter - Discharge Information Instructions: Burn Care, Adult, [id number] Referrals: PCP,None [Primary Care Provider] - Forms: ED Department Discharge Additional Instructions: The following information is given to patients seen in the emergency department who are being discharged to home. This information is to outline your options for follow-up care. We provide all patients seen in our emergency department with a follow-up referral. The need for follow-up, as well as the timing and circumstances, are variable depending upon the specifics of your emergency department visit. If you don't have a primary care physician on staff, we will provide you with a referral. We always advise you to contact your personal physician following an emergency department visit to inform them of the circumstance of the visit and for follow-up with them and/or the need for any referrals to a consulting specialist. The emergency department will also refer you to a specialist when appropriate. This referral assures that you have the opportunity for follow-up care with a specialist. All of these measure are taken in an effort to provide you with optimal care, which includes your follow-up. Under all circumstances we always encourage you to contact your private physician who remains a resource for coordinating your care. When calling for follow-up care, please make the office aware that this follow-up is from your recent emergency room visit. If for any reason you are refused follow-up, please contact the [facility] Emergency Department at and asked to speak to the emergency department charge nurse. [facility] [address] [place] [id number] [facility] [address] [place] [id number] 1. Keep the skin clean and dry. Apply topical bacitracin ointment twice daily over the next 1 week. Continue to monitor the skin closely as we discussed. 2. Tylenol and/or ibuprofen as needed for pain. [place] 1 -2 tabs every 4-6 hours as needed for severe pain. This medication may cause drowsiness so do not take it while driving or needing to be functioning outside of the house. 3. Follow-up with your primary care provider as we discussed. Return to the ED as needed and as discussed. Sepsis Event Note - Focused Exam Vital Signs: Vital Signs Temp Pulse Resp BP Pulse Ox 04/14/20 17:00 96.2 F L 69 17 113/82 97 Date Exam was Performed: 04/14/20 Time Exam was Performed: 17:11
[2020-04-14] MEDS ORDERED: Bacitracin Oint 28.35 GM Tube TOP STA (17:25)
[2020-04-14] MEDS ORDERED: Bacitracin Oint 28.35 GM Tube ONE (17:25)
== END 2020-04-14 17:34 | disposition home or self-care (01) ==
LOC: MW.ED 16:56
DX: T23.261A Burn of second degree of back of right hand, initial encounter (principal); Z88.5 Allergy status to narcotic agent; Z79.01 Long term (current) use of anticoagulants; Z79.899 Other long term (current) drug therapy; X12.XXXA Contact with other hot fluids, initial encounter; Y99.0 Civilian activity done for income or pay
CPT/HCPCS: 16020; 99282; 99283

== ENCOUNTER 2021-02-01 08:59 | Emergency (ER) | payer MEDICAID ==
[2021-02-01] MEDS ORDERED: Sodium Chloride 0.9% 10 ML Syringe FLUSH PRN (09:19)
[2021-02-01] MEDS ORDERED: Sodium Chloride 0.9% 2.5 ML Syringe FLUSH PRN (09:19)
[2021-02-01] MEDS ORDERED: Ketorolac 15 MG/ML SDV IVPUSH ONE (09:19)
--- NOTE | 2021-02-01 09:21 | EDM.PDOC ---
ED HPI GENERAL MEDICAL PROBLEM - General Chief Complaint: Genitourinary Problem Stated Complaint: BACK PAIN Time Seen by Provider: 02/01/21 09:04 - History of Present Illness INITIAL COMMENTS - FREE TEXT/NARRATIVE: Pleasant 40-year-old female who works long hours standing on her feet reports of 2 weeks he has gradually increasing insidious onset pain in the right flank. It has become unbearable and sharp. It is worse when she stands sits moves or since the all the time. Nothing makes it better. There are no other associated systemic signs of infection or illness. She not nauseated not vomiting she has no dysuria. The patient is on apixaban because of recurring blood clots in her legs. She has had ketorolac in the past while on apixaban and it did not cause her to have any bleeding problem. The patient notices no abnormal swelling of the legs recently. She has no rash Right flank Pain Score (Numeric/FACES): 10 - Related Data Allergies Allergy/AdvReac Type Severity Reaction Status Date / Time albuterol Allergy Airway Verified 02/01/21 09:09 Tightness morphine Allergy Itching Verified 02/01/21 09:09 Sulfa (Sulfonamide Allergy Bronchospas Verified 02/01/21 09:09 Antibiotics) ms Home Meds: Home Meds Apixaban [Eliquis] 5 mg PO BID #14 tablet 11/26/19 [Rx] Mirtazapine 25 mg PO ASDIRECTED 11/26/19 [History] QUEtiapine Fumarate [Seroquel] 50 mg PO ASDIRECTED 11/26/19 [History] hydrOXYzine HCL [Atarax] 50 mg PO ASDIRECTED 11/26/19 [History] traMADol [Ultram] 50 mg PO Q4H PRN #15 tab 11/26/19 [Rx] Cyclobenzaprine [Flexeril] 10 mg PO TID PRN #15 tab 02/01/21 [Rx] methylPREDNISolone [Medrol Dose Pack] 4 mg PO DAILY #21 tab 02/01/21 [Rx] Past Medical History HEENT History: Reports: None Cardiovascular History: Reports: None Other Cardiovascular History: reports to be on blood thinner but unsure of the name of med Respiratory History: Reports: None Gastrointestinal History: Reports: None Genitourinary History: Reports: None 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: 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: None Musculoskeletal History: Reports: None Neurological History: Reports: Migraines Psychiatric History: Reports: Anxiety, Depression Endocrine/Metabolic History: Reports: None Hematologic History: Reports: None Immunologic History: Reports: None Oncologic (Cancer) History: Reports: None Dermatologic History: Reports: None - Infectious Disease History Infectious Disease History: Reports: None - Past Surgical History Cardiovascular Surgical History: Reports: None Neurological Surgical History: Reports: None Social & Family History - Family History Family Medical History: No Pertinent Family History - Tobacco Use Tobacco Use Status *Q: Never Tobacco User - Caffeine Use Caffeine Use: Reports: Coffee - Recreational Drug Use Recreational Drug Use: No ED ROS GENERAL - Review of Systems Review Of Systems: Comprehensive ROS is negative, except as noted in HPI. ED EXAM, GENERAL - Physical Exam Exam: See Below Free Text/Narrative:: My physical exam is in the HPI Course - Vital Signs Text/Narrative:: The patient's urine has trace leuk esterase and few white cells. Is not convincing for UTI that would cause flank pain. I question the patient when I found out the D-dimer was over her limits. She says she takes apixaban once a day. Clearly her summary indicates she takes it twice a day. Her pharmacy is closed today as it is Tuesday. It is possible she will need a bridge with an ox if she has a pulmonary embolus. CT pending. Last Recorded V/S: Last Vital Signs Temp 36.2 C 02/01/21 09:03 Pulse 81 02/01/21 09:03 Resp 18 02/01/21 09:03 BP 128/83 02/01/21 09:03 Pulse Ox 95 02/01/21 09:03 - Orders/Labs/Meds Orders: Active Orders 24 hr Category Date Time Status Sodium Chloride 0.9% [Saline Flush] Med 02/01/21 09:19 Active 10 ml FLUSH ASDIRECTED PRN Sodium Chloride 0.9% [Saline Flush] Med 02/01/21 09:19 Active 2.5 ml FLUSH ASDIRECTED PRN Saline Lock Insert [OM.PC] Stat Oth 02/01/21 09:19 Ordered Medication Orders Sodium Chloride (Sodium Chloride 0.9% 10 Ml Syringe) 10 ml FLUSH ASDIRECTED PRN PRN Reason: Keep Vein Open Last Admin: 02/01/21 09:54 Dose: 10 ml Documented by: OLGA Sodium Chloride (Sodium Chloride 0.9% 2.5 Ml Syringe) 2.5 ml FLUSH ASDIRECTED PRN PRN Reason: Keep Vein Open Last Admin: 02/01/21 09:54 Dose: 2.5 ml Documented by: OLGA Labs: Laboratory Tests 02/01/21 02/01/21 02/01/21 Range/Units 09:12 09:40 09:40 WBC 5.80 (4.0-11.0) K/uL RBC 4.29 L (4.30-5.90) M/uL Hgb 13.4 (12.0-16.0) g/dL Hct 39.5 (36.0-46.0) % MCV 92.1 (80.0-98.0) fL MCH 31.2 (27.0-32.0) pg MCHC 33.9 (31.0-37.0) g/dL RDW Std Deviation 44.1 (28.0-62.0) fl RDW Coeff of Cuauhtemoc 13 (11.0-15.0) % Plt Count 193 (150-400) K/uL MPV 11.10 (7.40-12.00) fL Neut % (Auto) 60.9 (48.0-80.0) % Lymph % (Auto) 29.0 (16.0-40.0) % Cross % (Auto) 9.8 (0.0-15.0) % Eos % (Auto) 0.3 (0.0-7.0) % Baso % (Auto) 0.0 (0.0-1.5) % Neut # (Auto) 3.5 (1.4-5.7) K/uL Lymph # (Auto) 1.7 (0.6-2.4) K/uL Cross # (Auto) 0.6 (0.0-0.8) K/uL Eos # (Auto) 0.0 (0.0-0.7) K/uL Baso # (Auto) 0.0 (0.0-0.1) K/uL Nucleated RBC % 0.0 /100WBC Nucleated RBCs # 0 K/uL D-Dimer, Quantitative 0.76 H (0.0-0.50) mg/L FEU Sodium (136-145) mmol/L Potassium (3.5-5.1) mmol/L Chloride (98-107) mmol/L Carbon Dioxide (21.0-32.0) mmol/L BUN (7.0-18.0) mg/dL Creatinine (0.6-1.0) mg/dL Est Cr Clr Drug Dosing mL/min Estimated GFR (MDRD) ml/min Glucose (74-106) mg/dL Calcium (8.5-10.1) mg/dL Urine Color YELLOW Urine Appearance SLT CLOUDY Urine pH 5.5 (5.0-8.0) Ur Specific [place] 1.025 (1.001-1.035) Urine Protein NEGATIVE (NEGATIVE) mg/dL Urine Glucose (UA) NEGATIVE (NEGATIVE) mg/dL Urine Ketones NEGATIVE (NEGATIVE) mg/dL Urine Occult Blood NEGATIVE (NEGATIVE) Urine Nitrite NEGATIVE (NEGATIVE) Urine Bilirubin NEGATIVE (NEGATIVE) Urine Urobilinogen 0.2 (<2.0) EU/dL Ur Leukocyte Esterase SMALL H (NEGATIVE) Urine RBC 0-1 (0-2/HPF) Urine WBC 2-4 (0-5/HPF) Ur Epithelial Cells FEW (NONE-FEW) Urine Bacteria FEW (NEGATIVE) 02/01/21 Range/Units 09:40 WBC (4.0-11.0) K/uL RBC (4.30-5.90) M/uL Hgb (12.0-16.0) g/dL Hct (36.0-46.0) % MCV (80.0-98.0) fL MCH (27.0-32.0) pg MCHC (31.0-37.0) g/dL RDW Std Deviation (28.0-62.0) fl RDW Coeff of Cuauhtemoc (11.0-15.0) % Plt Count (150-400) K/uL MPV (7.40-12.00) fL Neut % (Auto) (48.0-80.0) % Lymph % (Auto) (16.0-40.0) % Cross % (Auto) (0.0-15.0) % Eos % (Auto) (0.0-7.0) % Baso % (Auto) (0.0-1.5) % Neut # (Auto) (1.4-5.7) K/uL Lymph # (Auto) (0.6-2.4) K/uL Cross # (Auto) (0.0-0.8) K/uL Eos # (Auto) (0.0-0.7) K/uL Baso # (Auto) (0.0-0.1) K/uL Nucleated RBC % /100WBC Nucleated RBCs # K/uL D-Dimer, Quantitative (0.0-0.50) mg/L FEU Sodium 140 (136-145) mmol/L Potassium 3.7 (3.5-5.1) mmol/L Chloride 105 (98-107) mmol/L Carbon Dioxide 24.9 (21.0-32.0) mmol/L BUN 13 (7.0-18.0) mg/dL Creatinine 0.9 (0.6-1.0) mg/dL Est Cr Clr Drug Dosing 92.87 mL/min Estimated GFR (MDRD) > 60.0 ml/min Glucose 102 (74-106) mg/dL Calcium 8.7 (8.5-10.1) mg/dL Urine Color Urine Appearance Urine pH (5.0-8.0) Ur Specific [place] (1.001-1.035) Urine Protein (NEGATIVE) mg/dL Urine Glucose (UA) (NEGATIVE) mg/dL Urine Ketones (NEGATIVE) mg/dL Urine Occult Blood (NEGATIVE) Urine Nitrite (NEGATIVE) Urine Bilirubin (NEGATIVE) Urine Urobilinogen (<2.0) EU/dL Ur Leukocyte Esterase (NEGATIVE) Urine RBC (0-2/HPF) Urine WBC (0-5/HPF) Ur Epithelial Cells (NONE-FEW) Urine Bacteria (NEGATIVE) Meds: Medications Generic Name Dose Route Start Last Admin Trade Name Freq PRN Reason Stop Dose Admin Sodium Chloride 10 ml 02/01/21 09:19 02/01/21 09:54 Sodium Chloride 0.9% 10 Ml Syringe FLUSH 10 ml ASDIRECTED PRN Administration Keep Vein Open Sodium Chloride 2.5 ml 02/01/21 09:19 02/01/21 09:54 Sodium Chloride 0.9% 2.5 Ml Syringe FLUSH 2.5 ml ASDIRECTED PRN Administration Keep Vein Open Discontinued Medications Generic Name Dose Route Start Last Admin Trade Name Freq PRN Reason Stop Dose Admin Ketorolac Tromethamine 15 mg 02/01/21 09:19 02/01/21 09:53 Ketorolac 15 Mg/Ml Sdv IVPUSH 02/01/21 09:20 15 mg ONETIME ONE Administration Departure - Departure Time of Disposition: 11:53 Disposition: Home, Self-Care 01 Condition: Good Clinical Impression: Back pain - Discharge Information Prescriptions: Cyclobenzaprine [Flexeril] 10 mg PO TID PRN #15 tab PRN Reason: Pain (Moderate 4-6) methylPREDNISolone [Medrol Dose Pack] 4 mg PO DAILY #21 tab Instructions: Acute Back Pain, Adult Referrals: PCP,None [Primary Care Provider] - Forms: ED Department Discharge Additional Instructions: [facility] [address] [place] [id number] [address] The following information is given to patients seen in the emergency department who are being discharged to home. This information is to outline your options for follow-up care. We provide all patients seen in our emergency department with a follow-up referral. The need for follow-up, as well as the timing and circumstances, are variable depending upon the specifics of your emergency department visit. If you don't have a primary care physician on staff, we will provide you with a referral. We always advise you to contact your personal physician following an emergency department visit to inform them of the circumstance of the visit and for follow-up with them and/or the need for any referrals to a consulting specialist. The emergency department will also refer you to a specialist when appropriate. This referral assures that you have the opportunity for follow-up care with a specialist. All of these measure are taken in an effort to provide you with optimal care, which includes your follow-up. Under all circumstances we always encourage you to contact your private physician who remains a resource for coordinating your care. When calling for follow-up care, please make the office aware that this follow-up is from your recent emergency room visit. If for any reason you are refused follow-up, please contact the [facility] Emergency Department at and asked to speak to the emergency department charge nurse. Sepsis Event Note (ED) - Evaluation Sepsis Screening Result: No Definite Risk - Focused Exam Vital Signs: Vital Signs Temp Pulse Resp BP Pulse Ox 02/01/21 09:03 36.2 C 81 18 128/83 95 - My Orders Last 24 Hours: My Active Orders 02/01/21 09:19 Sodium Chloride 0.9% [Saline Flush] 10 ml FLUSH ASDIRECTED PRN Sodium Chloride 0.9% [Saline Flush] 2.5 ml FLUSH ASDIRECTED PRN Saline Lock Insert [OM.PC] Stat - Assessment/Plan Last 24 Hours: My Active Orders 02/01/21 09:19 Sodium Chloride 0.9% [Saline Flush] 10 ml FLUSH ASDIRECTED PRN Sodium Chloride 0.9% [Saline Flush] 2.5 ml FLUSH ASDIRECTED PRN Saline Lock Insert [OM.PC] Stat
--- NOTE | 2021-02-01 09:36 | CR ---
HISTORY: Posterior thoracic pain. TECHNIQUE: One view of the chest. COMPARISON: No prior. FINDINGS: There is no acute lung infiltrate or pulmonary edema. No pneumothorax or pleural effusion. Cardiac size and pulmonary vasculature are within normal limits. No acute bony abnormality. IMPRESSION: No acute disease. Dictated by Jai Shirley MD @ 02/01/2021 9:36:22 AM Dictated by: Jai Shirley MD @ 02/01/2021 09:36:27 (Electronically Signed)
[2021-02-01 10:04] LABS: BLOOD UREA NITROGEN,BUN 13 mg/dL (7.0-18.0); CARBON DIOXIDE,CO2 24.9 mmol/L (21.0-32.0); CHLORIDE,CL 105 mmol/L (98-107); GLUCOSE RANDOM 102 mg/dL (74-106); POTASSIUM,K 3.7 mmol/L (3.5-5.1); SODIUM,NA 140 mmol/L (136-145)
--- NOTE | 2021-02-01 11:43 | CT ---
INDICATION: Right lower thoracic pain. History of hyper coagulation. TECHNIQUE: CT chest PE was acquired with 100 cc Omnipaque 350 IV contrast. COMPARISON: None. FINDINGS: Heart and vasculature: Contrast opacification of the pulmonary arterial tree is adequate. No sign of pulmonary embolism. Heart size is normal. Thoracic aorta and pulmonary artery are normal in caliber. Lungs and pleural: No suspicious nodules or infiltrates. No pleural effusions, pleural thickening, or pneumothorax. Lymph nodes/mediastinum: There are a few borderline to minimally enlarged bilateral axillary lymph nodes. No lymphadenopathy elsewhere. Thyroid gland is normal. Chest wall: No masses. Upper abdomen: Normal. Bones: Unremarkable for age. IMPRESSION: 1. No acute specific finding to explain right lower thoracic pain. 2. No pulmonary embolism. 3. Lungs are clear. 4. Few minimally enlarged bilateral axillary lymph nodes of uncertain significance. Please note that all CT scans at this facility use dose modulation, iterative reconstruction, and/or weight-based dosing when appropriate to reduce radiation dose to as low as reasonably achievable. Dictated by Levar Sandra MD @ Feb 01 2021 11:35AM Signed by Dr. Levar Sandra @ Feb 01 2021 11:41AM
== END 2021-02-01 12:20 | disposition home or self-care (01) ==
LOC: MW.ED 08:59
DX: M54.9 Dorsalgia, unspecified (principal); Z88.8 Allergy status to other drugs, medicaments and biological substances; Z88.5 Allergy status to narcotic agent; Z88.2 Allergy status to sulfonamides; Z79.01 Long term (current) use of anticoagulants
CPT/HCPCS: 36415; 71045; 71275; 80048; 81001; 85025; 85379; 96374; 99284; J1885; 99283

== ENCOUNTER 2021-10-02 15:53 | Emergency (ER) | payer MEDICAID ==
[2021-10-02] MEDS ORDERED: Ketorolac 60 MG/2 ML SDV IM ONE (16:21)
--- NOTE | 2021-10-02 16:56 | CR ---
INDICATION: Shortness of breath. Back pain. History of pleurisy. TECHNIQUE: Chest 1 views. COMPARISON: 02/01/2021. FINDINGS: Cardiovascular and mediastinum: Heart size and vasculature are normal in caliber and appearance. Lungs and pleural spaces: Lungs are clear. No sign of infiltrate or mass. No sign of pleural effusion. No pneumothorax. Bones and soft tissues: No significant findings. IMPRESSION: No acute findings and no significant changes from the prior exam. No findings to explain pain or shortness of breath. Dictated by Levar Sandra MD @ 10/02/2021 4:53:48 PM (Electronically Signed)
--- NOTE | 2021-10-02 17:00 | EDM.PDOC ---
ED HPI GENERAL MEDICAL PROBLEM - General Chief Complaint: Back Pain or Injury Stated Complaint: BACK PAIN Time Seen by Provider: 10/02/21 16:07 Source of Information: Reports: Patient History Limitations: Reports: No Limitations - History of Present Illness INITIAL COMMENTS - FREE TEXT/NARRATIVE: HISTORY AND PHYSICAL: History of present illness: The patient is a 40-year-old female who presents to the emergency department with complaints of it hurts to take a deep breath on her upper bilateral back for approximately 1 week. The patient states that she has been using Motrin Tylenol and heat without relief. The patient denies any fever, cough, nausea, vomiting. Other than the back pain the patient has been otherwise healthy. Patient states that she had similar pain about 15 years ago when she had pleurisy. The patient states that she lifts in both of her jobs. She works at [employer] and scrapes the [employer]. She works at [employer] and stands for long hours. Patient denies any fever, chills, headache, change in vision, syncope or near syncope. Denies any chest pain, shortness of breath or cough. Denies any abdominal pain, nausea, vomiting, diarrhea, constipation or dysuria. Has not noted any blood in urine or stool. Patient has been eating and drinking appropriately. Review of systems: As per history of present illness and below otherwise all systems reviewed and negative. Past medical history: As per history of present illness and as reviewed below otherwise noncontributory. Surgical history: As per history of present illness and as reviewed below otherwise noncontributory. Social history: See social history for further information Family history: As per history of present illness and as reviewed below otherwise noncontributory. Physical exam: General: Well developed and well nourished. Alert and orientated x 3. Nontoxic in appearance and in no acute distress. Vital signs are stable and have been reviewed by me. Nursing notes were reviewed. HEENT: Atraumatic, normocephalic, pupils equal and reactive bilaterally, negative for conjunctival pallor or scleral icterus, mucous membranes moist, TMs normal bilaterally, throat clear, neck supple, nontender, trachea midline. No drooling or trismus noted. No meningeal signs. No hot potato voice noted. Lungs: Clear to auscultation bilaterally. No wheezes, rales, or rhonchi. Chest nontender. Normal work of breathing, no accessory muscles used. Heart: S1S2, regular rate and rhythm without overt murmur, gallops, or rubs. No JVD. No peripheral edema Abdomen: Soft, nondistended, nontender. Normoactive bowel sounds. Negative for masses or costovertebral tenderness. Back: Neck and back have no deformities, external skin changes, or signs of trauma. Curvature of the cervical, thoracic, and lumbar spine are within normal limits. Bony features of the shoulders and hips are of equal height bilaterally. Posture is upright, gait is smooth, steady, and within normal limits. No tenderness is noted on palpation of the spinous processes. Spinous processes are midline. Cervical, thoracic, and lumbar paraspinal muscles are not tender and are without spasm. No discomfort is noted with flexion, extension, and [id number] rotation of the cervical spine, full range of motion is noted. Full range of motion including flexion, extension, and [id number] rotation of the thoracic and lumbar spine are noted and with mild discomfort. Straight leg raise test is negative bilaterally. Sensation to the upper and lower extremities is normal bilaterally. No clonus is noted. 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 Dorsi/plantar flexion is normal bilaterally. Skin: Intact, warm, dry. No lesions or rashes noted. Hematologic: No petechiae or purpra. Mucosa appropriate color and normal nail bed color and refill. Extremities: Atraumatic, moves all extremities per self without difficulty or deficits, negative for cords or calf pain. Neurovascular unremarkable. Neuro: Awake, alert, oriented. Cranial nerves II through XII unremarkable. Cerebellum unremarkable. Motor and sensory unremarkable throughout. Exam nonfocal. Psychiatric: Mood and affect are appropriate. Normal thought process. Answering questions appropriately. Notes: *This patient was seen and evaluated during the 2019 SARS-CoV-2 novel coronavirus pandemic period. Community viral transmission is ongoing at time of this encounter and the emergency department is operating under pandemic response procedures. Stated above the patient is a 40-year-old female who presents to the emergency room with upper back pain. Her back pain appears to be muscular in nature. She is tender laterally and on her flanks. Upon discussing findings with patient she requested Toradol. The patient does not wish to have any blood work. I have or dered a chest x-ray and an EKG. The patient is agreeable with this plan. Chest x-ray IMPRESSION: No acute findings and no significant changes from the prior exam. No findings to explain pain or shortness of breath. Dr. Mcclure read the EKG as normal. I talked with the patient about the findings and her back pain is from muscle spasms. The patient is agreeable with this and states that she does a lot of heavy lifting at her job's. The Toradol has not helped with the pain. I'm going to give the patient 60 mg of Norflex IM and 10 of Valium p.o. I will prescribe Norflex 100 mg p.o. twice daily for 10 days as needed for the muscle spasms. I have instructed the patient to at least take the medication for 3 days to assist with the pain. I have given the patient reports until Tuesday. The patient is agreeable with this discharge plan. I have talked with the patient about today's findings, in addition to providing specific details for plan of care. Reassessment at the time of disposition demo nstrates that the patient is in no acute distress. The patient is stable for discharge, counseling was provided and we discussed in great detail signs and symptoms that would prompt them to return to the Emergency Department. Medication, follow up and supportive care measures were reviewed and discussed. Voices understanding and is agreeable to plan of care. Denies any further questions or concerns at this time. Diagnostics: EKG, chest x-ray Therapeutics: Toradol 60mg IM Prescription: Norflex 100 mg p.o. twice daily for 10 days as needed Impression: Thoracic back pain Plan: 1. You were evaluated today on an emergent basis. Your complaints of upper back pain with movement and palpation was evaluated with an examination, chest x-ray and EKG. Your pain is most likely muscular in nature. You were treated with Toradol, Norflex, and Valium in the emergency department. I have prescribed Norflex 100 mg twice a day as needed for muscle spasms. [facility] You should take this for at least 3 days before you'll notice a change. As we talked about you can continue to use Motrin and Tylenol to help with the pain. You can use warmth if it helps. I would follow-up with your primary care provider as you might need physical therapy to assist with your back as your jobs have a lot of lifting involved. I have given you off work until Tuesday. 2. You can alternate Tylenol and ibuprofen as needed for pain and fever management. 3. We encourage you to follow up with your primary care provider and/or recommended specialist in the next few days for re-evaluation and further care/management. 4. If your symptoms should worsen, new symptoms develop or any of the signs and symptoms we discussed should arise please return to the emergency room or call 911 (if needed). Definitive disposition and diagnosis as appropriate pending reevaluation and review of above. back Pain Score (Numeric/FACES): 10 - Related Data Allergies Allergy/AdvReac Type Severity Reaction Status Date / Time albuterol Allergy Airway Verified 10/02/21 16:03 Tightness morphine Allergy Itching Verified 10/02/21 16:03 Sulfa (Sulfonamide Allergy Bronchospas Verified 10/02/21 16:03 Antibiotics) ms Home Meds: Home Meds Apixaban [Eliquis] 5 mg PO BID #14 tablet 11/26/19 [Rx] Mirtazapine 25 mg PO ASDIRECTED 11/26/19 [History] QUEtiapine Fumarate [Seroquel] 50 mg PO ASDIRECTED 11/26/19 [History] hydrOXYzine HCL [Atarax] 50 mg PO ASDIRECTED 11/26/19 [History] Orphenadrine [Norflex] 100 mg PO BID PRN 1 Days #20 tab 10/02/21 [Rx] Orphenadrine [Norflex] 100 mg PO BID PRN 1 Days #20 tab 10/02/21 [Rx] Past Medical History HEENT History: Reports: None Cardiovascular History: Reports: Blood Clots/VTE/DVT Other Cardiovascular History: reports to be on blood thinner but unsure of the name of med Respiratory History: Reports: None Gastrointestinal History: Reports: None Genitourinary History: Reports: None FUR SORTER History: Reports: None Musculoskeletal History: Reports: None Neurological History: Reports: Migraines Psychiatric History: Reports: Anxiety, Depression Endocrine/Metabolic History: Reports: None Hematologic History: Reports: None Immunologic History: Reports: None Oncologic (Cancer) History: Reports: None Dermatologic History: Reports: None - Infectious Disease History Infectious Disease History: Reports: None - Past Surgical History Cardiovascular Surgical History: Reports: None Respiratory Surgical History: Reports: None Neurological Surgical History: Reports: None Musculoskeletal Surgical History: Reports: Shoulder Surgery, Other (See Below) Other Musculoskeletal Surgeries/Procedures:: bilateral rotator cuff surgery Social & Family History - Family History Family Medical History: No Pertinent Family History - Caffeine Use Caffeine Use: Reports: Coffee - Recreational Drug Use Recreational Drug Use: No ED ROS GENERAL - Review of Systems Review Of Systems: Comprehensive ROS is negative, except as noted in HPI. ED EXAM,LOWER BACK PAIN/INJURY - Physical Exam Exam: See Below (See dictation) Course - Vital Signs Last Recorded V/S: Last Vital Signs Temp 96.9 F 10/02/21 16:04 Pulse 79 10/02/21 17:57 Resp 18 10/02/21 16:04 BP 126/89 10/02/21 17:57 Pulse Ox 97 10/02/21 16:04 - Orders/Labs/Meds Meds: Medications Discontinued Medications Generic Name Dose Route Start Last Admin Trade Name Freq PRN Reason Stop Dose Admin Diazepam 10 mg 10/02/21 17:06 10/02/21 17:25 Diazepam 5 Mg Tab PO 10/02/21 17:07 10 mg ONETIME ONE Administration Ketorolac Tromethamine 60 mg 10/02/21 16:21 10/02/21 17:24 Ketorolac 60 Mg/2 Ml Sdv IM 10/02/21 16:22 60 mg ONETIME ONE Administration Orphenadrine Citrate 60 mg 10/02/21 17:06 10/02/21 17:25 Orphenadrine 60 Mg/2 Ml Inj IM 10/02/21 17:07 60 mg ONETIME ONE Administration Departure - Departure Time of Disposition: 17:10 Disposition: Home, Self-Care 01 Condition: Good Clinical Impression: Back pain Qualifiers: Back pain location: thoracic back pain Chronicity: acute Back pain laterality: bilateral Qualified Code(s): M54.6 - Pain in thoracic spine - Discharge Information *PRESCRIPTION DRUG MONITORING PROGRAM REVIEWED*: Not Applicable *COPY OF PRESCRIPTION DRUG MONITORING REPORT IN PATIENT ERNESTINE: Not Applicable Prescriptions: Orphenadrine [Norflex] 100 mg PO BID PRN 1 Days #20 tab PRN Reason: Muscle Spasm - Painful Orphenadrine [Norflex] 100 mg PO BID PRN 1 Days #20 tab PRN Reason: Muscle Spasm - Painful Instructions: Acute Back Pain, Adult, Muscle Strain, [id number] Referrals: PCP,None [Primary Care Provider] - Forms: ED Department Discharge Additional Instructions: The following information is given to patients seen in the emergency department who are being discharged to home. This information is to outline your options for follow-up care. We provide all patients seen in our emergency department with a follow-up referral. The need for follow-up, as well as the timing and circumstances, are variable depending upon the specifics of your emergency department visit. If you don't have a primary care physician on staff, we will provide you with a referral. We always advise you to contact your personal physician following an emergency department visit to inform them of the circumstance of the visit and for follow-up with them and/or the need for any referrals to a consulting specialist. The emergency department will also refer you to a specialist when appropriate. This referral assures that you have the opportunity for follow-up care with a specialist. All of these measure are taken in an effort to provide you with optimal care, which includes your follow-up. Under all circumstances we always encourage you to contact your private physician who remains a resource for coordinating your care. When calling for follow-up care, please make the office aware that this follow-up is from your recent emergency room visit. If for any reason you are refused follow-up, please contact the [facility] Emergency Department at and asked to speak to the emergency department charge nurse. [facility] - Primary Care [address] [place] [address] [id number] [address] [address] Plan: 1. You were evaluated today on an emergent basis. Your complaints of upper back pain with movement and palpation was evaluated with an examination, chest x-ray and EKG. Your pain is most likely muscular in nature. You were treated with Toradol, Norflex, and Valium in the emergency department. I have prescribed Norflex 100 mg twice a day as needed for muscle spasms. [facility] medications [facility] sent [facility]. You should take this for at least 3 days before you'll notice a change. As we talked about you can continue to use Motrin and Tylenol to help with the pain. You can use warmth if it helps. I would follow-up with your primary care provider as you might need physical therapy to assist with your back as your jobs have a lot of lifting involved. I have given you off work until Tuesday. 2. You can alternate Tylenol and ibuprofen as needed for pain and fever management. 3. We encourage you to follow up with your primary care provider and/or recommended specialist in the next few days for re-evaluation and further care/management. 4. If your symptoms should worsen, new symptoms develop or any of the signs and symptoms we discussed should arise please return to the emergency room or call 911 (if needed). Sepsis Event Note (ED) - Evaluation Sepsis Screening Result: No Definite Risk - Focused Exam Vital Signs: Vital Signs Temp Pulse Resp BP Pulse Ox 10/02/21 17:57 79 126/89 10/02/21 16:04 96.9 F 68 18 129/89 97
--- NOTE | 2021-10-02 17:02 | PCM.EKG ---
#1 Interpretation EKG Date: 10/02/21 Time: 17:02 EKG Interpretation Comments: Normal sinus rhythm rate of 66 normal axis and intervals no acute ischemia
[2021-10-02] MEDS ORDERED: Orphenadrine 60 MG/2 ML Inj IM ONE (17:06)
[2021-10-02] MEDS ORDERED: Diazepam 5 MG Tab PO ONE (17:06)
== END 2021-10-02 17:57 | disposition home or self-care (01) ==
LOC: MW.ED 15:53
DX: M54.6 Pain in thoracic spine (principal); Z88.5 Allergy status to narcotic agent; Z88.2 Allergy status to sulfonamides; Z88.8 Allergy status to other drugs, medicaments and biological substances; Z79.01 Long term (current) use of anticoagulants
CPT/HCPCS: 71046; 96372; 99284; A9270; J1885; J2360

== ENCOUNTER 2021-10-17 17:11 | Emergency (ER) | payer MEDICAID ==
[2021-10-17] MEDS ORDERED: Ketorolac 60 MG/2 ML SDV IM ONE (19:01)
--- NOTE | 2021-10-17 19:05 | EDM.PDOC ---
ED HPI GENERAL MEDICAL PROBLEM - General Chief Complaint: Respiratory Problem Stated Complaint: CONGESTION, POSSIBLE SINUS INFECTION Time Seen by Provider: 10/17/21 18:40 Source of Information: Reports: Patient History Limitations: Reports: No Limitations - History of Present Illness INITIAL COMMENTS - FREE TEXT/NARRATIVE: HISTORY AND PHYSICAL: History of present illness: The patient is a 40-year-old female who presents to the emergency with 2 weeks of cold-like symptoms. The patient states that her grandkids exposed her to some kind of viral illness approximately 2 weeks ago. She states that she is actually feeling better but yesterday her chest started burning when she coughed. The patient denies any fever and has been eating and drinking without difficulty. The patient states that her only other complaint is that she her ears burn. Patient denies any fever, chills, headache, change in vision, syncope or near syncope. Denies any chest pain, or back pain. Denies any abdominal pain, nausea, vomiting, diarrhea, constipation or dysuria. Has not noted any blood in urine or stool. Patient has been eating and drinking appropriately. Review of systems: As per history of present illness and below otherwise all systems reviewed and negative. Past medical history: As per history of present illness and as reviewed below otherwise noncontributory. Surgical history: As per history of present illness and as reviewed below otherwise noncontributory. Social history: See social history for further information Family history: As per history of present illness and as reviewed below otherwise noncontributory. Physical exam: General: Well developed and well nourished. Alert and orientated x 3. Nontoxic in appearance and in no acute distress. Vital signs are stable and have been reviewed by me. Nursing notes were reviewed. HEENT: Atraumatic, normocephalic, pupils equal and reactive bilaterally, negative for conjunctival pallor or scleral icterus, mucous membranes moist, TMs normal bilaterally, throat clear, neck supple, nontender, trachea midline. No drooling or trismus noted. No meningeal signs. No hot potato voice noted. Lungs: Clear to auscultation bilaterally. No wheezes, rales, or rhonchi. Chest nontender. Normal work of breathing, no accessory muscles used. Heart: S1S2, regular rate and rhythm without overt murmur, gallops, or rubs. No JVD. No peripheral edema Abdomen: Soft, nondistended, nontender. Normoactive bowel sounds. Negative for masses or costovertebral tenderness. Skin: Intact, warm, dry. No lesions or rashes noted. Hematologic: No petechiae or purpra. Mucosa appropriate color and normal nail bed color and refill. Extremities: Atraumatic, moves all extremities per self without difficulty or deficits, negative for cords or calf pain. Neurovascular unremarkable. Neuro: Awake, alert, oriented. Cranial nerves II through XII unremarkable. Cerebellum unremarkable. Motor and sensory unremarkable throughout. Exam nonfoc al. Psychiatric: Mood and affect are appropriate. Normal thought process. Answering questions appropriately. Notes: *This patient was seen and evaluated during the 2019 SARS-CoV-2 novel coronavirus pandemic period. Community viral transmission is ongoing at time of this encounter and the emergency department is operating under pandemic response procedures. Stated above the patient is a 40-year-old female who presents to the emergency department with 2 weeks of cold-like symptoms. Patient states that her sinus congestion has went away. She is complaining of burning when she coughs. She d enies a fever. I have ordered a Covid 19 swab, chest x-ray and I will treat her discomfort with Toradol injection. The patient is agreeable with this plan. The patient's COVID-19 swab was positive. Chest X-ray IMPRESSION: Patchy bilateral lung infiltrates which may relate to COVID-19 pneumonia. The patient feels mildly better after receiving a dose of Toradol. I informed the patient of her COVID-19 diagnosis and that she needed to stay at home until released by the health department. I gave the patient 2 work notes as she has 2 jobs. The patient is on day 14 of her symptoms and as such does not qualify for the monoclonal antibodies. I educated the patient on signs and symptoms of when to return to the emergency department related to COVID-19. The patient is agreeable with this discharge plan. I have talked with the patient about today's findings, in addition to providing specific details for plan of care. Reassessment at the time of disposition demonstrates that the patient is in no acute distress. The patient is stable for discharge, counseling was provided and we discussed in great detail signs and symptoms that would prompt them to return to the Emergency Department. Medication, follow up and supportive care measures were reviewed and discussed. Voices understanding and is agreeable to plan of care. Denies any further questions or concerns at this time. Diagnostics: COVID-19 swab, chest x-ray Therapeutics: Toradol Impression: COVID-19, COVID-19 pneumonia Plan: 1. Your COVID-19 screening is positive. That means you do have the coronavirus and you are considered contagious. Your vital signs and oxygen saturation are well enough that you were able to monitor your symptoms at home. Continue to monitor for trouble breathing, new confusion or inability to arouse, bluish lips or face or any of the other symptoms we discussed -if this occurs please return to the emergency room. 1b. I have reviewed note that you will be released by the [facility]. As we discussed you need to obtain a portable oxygen saturation monitor and if this would drop below 90% you would need to return to the emergency department. As this is day 14 you do not qualify for monoclonal antibodies. 2. Please self quarantine until cleared by [facility] Department. Inform any persons that you have been in contact with since you started becoming symptomatic that you have tested positive; they should be made aware and take the appropriate steps as needed. 3. You can take NyQuil during the evening to help get a restful night sleep. May alternate Tylenol and ibuprofen as needed for pain and fever management. 4. The [facility] department will be calling you and following up with you. The [place] COVID 19 Hotline phone number , They are open Tuesday - Tuesday 7am - 7pm. Follow up with your primary care provider for re-evaluation and re-testing after the 10 day quarantine and discuss when you should be seen. Definitive disposition and diagnosis as appropriate pending reevaluation and review of above. Bilateral Upper Back Pain Score (Numeric/FACES): 10 - Related Data Allergies Allergy/AdvReac Type Severity Reaction Status Date / Time albuterol Allergy Airway Verified 10/17/21 18:03 Tightness morphine Allergy Itching Verified 10/17/21 18:03 Sulfa (Sulfonamide Allergy Bronchospas Verified 10/17/21 18:03 Antibiotics) ms Home Meds: Home Meds Apixaban [Eliquis] 5 mg PO BID #14 tablet 11/26/19 [Rx] Mirtazapine 25 mg PO ASDIRECTED 11/26/19 [History] QUEtiapine Fumarate [Seroquel] 50 mg PO ASDIRECTED 11/26/19 [History] hydrOXYzine HCL [Atarax] 50 mg PO ASDIRECTED 11/26/19 [History] Orphenadrine [Norflex] 100 mg PO BID PRN 1 Days #20 tab 10/02/21 [Rx] Past Medical History HEENT History: Reports: None Cardiovascular History: Reports: Blood Clots/VTE/DVT Other Cardiovascular History: reports to be on blood thinner but unsure of the name of med Respiratory History: Reports: None Gastrointestinal History: Reports: None Genitourinary History: Reports: None SCIENTIFIC DIRECTOR History: Reports: None Musculoskeletal History: Reports: None Neurological History: Reports: Migraines Psychiatric History: Reports: Anxiety, Depression Endocrine/Metabolic History: Reports: None Hematologic History: Reports: None Immunologic History: Reports: None Oncologic (Cancer) History: Reports: None Dermatologic History: Reports: None - Infectious Disease History Infectious Disease History: Reports: Chicken Pox - Past Surgical History Cardiovascular Surgical History: Reports: None Respiratory Surgical History: Reports: None Neurological Surgical History: Reports: None Musculoskeletal Surgical History: Reports: Shoulder Surgery, Other (See Below) Other Musculoskeletal Surgeries/Procedures:: bilateral rotator cuff surgery Social & Family History - Family History Family Medical History: No Pertinent Family History - Tobacco Use Tobacco Use Status *Q: Never Tobacco User Second Hand Smoke Exposure: No - Caffeine Use Caffeine Use: Reports: Coffee - Recreational Drug Use Recreational Drug Use: No ED ROS GENERAL - Review of Systems Review Of Systems: Comprehensive ROS is negative, except as noted in HPI. ED EXAM, GENERAL - Physical Exam Exam: See Below (See discharge) Course - Vital Signs Last Recorded V/S: Last Vital Signs Temp 97.9 F 10/17/21 18:07 Pulse 89 10/17/21 18:07 Resp 18 10/17/21 18:07 BP 133/82 10/17/21 18:07 Pulse Ox 98 10/17/21 18:07 - Orders/Labs/Meds Labs: Laboratory Tests 10/17/21 Range/Units 18:18 SARS-CoV-2 RNA (ISABEL) POSITIVE H (NEGATIVE) Meds: Medications Discontinued Medications Generic Name Dose Route Start Last Admin Trade Name Freq PRN Reason Stop Dose Admin Ketorolac Tromethamine 60 mg 10/17/21 19:01 10/17/21 19:22 Ketorolac 60 Mg/2 Ml Sdv IM 10/17/21 19:02 60 mg ONETIME ONE Administration Departure - Departure Time of Disposition: 19:53 Disposition: Home, Self-Care 01 Condition: Good Clinical Impression: COVID-19, Pneumonia due to COVID-19 virus - Discharge Information *PRESCRIPTION DRUG MONITORING PROGRAM REVIEWED*: Not Applicable *COPY OF PRESCRIPTION DRUG MONITORING REPORT IN PATIENT ERNESTINE: Not Applicable Instructions: 10 Things You Can Do to Manage Your COVID-19 Symptoms at Home - [facility] (06/05/2021), COVID-19: Quarantine vs. Isolation - [facility] (11/06/2020), COVID- 19: What to Do If You Are Sick- [facility] (02/04/2021) Referrals: PCP,None [Primary Care Provider] - Forms: ED Department Discharge Additional Instructions: The following information is given to patients seen in the emergency department who are being discharged to home. This information is to outline your options for follow-up care. We provide all patients seen in our emergency department with a follow-up referral. The need for follow-up, as well as the timing and circumstances, are variable depending upon the specifics of your emergency department visit. If you don't have a primary care physician on staff, we will provide you with a referral. We always advise you to contact your personal physician following an emergency department visit to inform them of the circumstance of the visit and for follow-up with them and/or the need for any referrals to a consulting specialist. The emergency department will also refer you to a specialist when appropriate. This referral assures that you have the opportunity for follow-up care with a specialist. All of these measure are taken in an effort to provide you with optimal care, which includes your follow-up. Under all circumstances we always encourage you to contact your private physician who remains a resource for coordinating your care. When calling for follow-up care, please make the office aware that this follow-up is from your recent emergency room visit. If for any reason you are refused follow-up, please contact the [facility] Emergency Department at and asked to speak to the emergency department charge nurse. Tania Dove [facility] - [facility] [address] [place] [id number] [facility] [address] [place] [address] Plan: 1. Your COVID-19 screening is positive. That means you do have the coronavirus and you are considered contagious. Your vital signs and oxygen saturation are well enough that you were able to monitor your symptoms at home. Continue to monitor for trouble breathing, new confusion or inability to arouse, bluish lips or face or any of the other symptoms we discussed -if this occurs please return to the emergency room. 1b. I have reviewed note that you will be released by the state. As we discussed you need to obtain a portable oxygen saturation monitor and if this would drop below 90% you would need to return to the emergency department. As this is day 14 you do not qualify for monoclonal antibodies. 2. Please self quarantine until cleared by [facility] Department. Inform any persons that you have been in contact with since you started becoming symptomatic that you have tested positive; they should be made aware and take the appropriate steps as needed. 3. You can take NyQuil during the evening to help get a restful night sleep. May alternate Tylenol and ibuprofen as needed for pain and fever management. 4. The [facility] department will be calling you and following up with you. The [place] COVID 19 Hotline phone number , They are open Tuesday - Tuesday 7am - 7pm. Follow up with your primary care provider for re-evaluation and re-testing after the 10 day quarantine and discuss when you should be seen. Sepsis Event Note (ED) - Evaluation Sepsis Screening Result: No Definite Risk - Focused Exam Vital Signs: Vital Signs Temp Pulse Resp BP Pulse Ox 10/17/21 18:07 97.9 F 89 18 133/82 98
--- NOTE | 2021-10-17 19:42 | CR ---
HISTORY: Chest pain and shortness of breath. TECHNIQUE: Two views of the chest. COMPARISON: 10/02/2021. FINDINGS: There are patchy bilateral lung infiltrates which may relate to COVID-19 pneumonia. No pneumothorax or pleural effusion. Heart size and pulmonary vasculature within normal limits. IMPRESSION: Patchy bilateral lung infiltrates which may relate to COVID-19 pneumonia. Dictated by Jai Shirley MD @ 10/17/2021 7:41:04 PM (Electronically Signed)
== END 2021-10-17 20:15 | disposition home or self-care (01) ==
LOC: MW.ED 17:11
DX: U07.1 COVID-19 (principal); J12.82 Pneumonia due to coronavirus disease 2019; Z88.5 Allergy status to narcotic agent; Z88.2 Allergy status to sulfonamides; Z88.8 Allergy status to other drugs, medicaments and biological substances; Z79.01 Long term (current) use of anticoagulants
CPT/HCPCS: 71046; 87635; 96372; 99284; J1885; U0002

== ENCOUNTER 2021-12-14 10:38 | Emergency (ER) | payer MEDICAID | END 2021-12-14 15:37 | disposition home or self-care (01) | LOC: MW.ED 10:38 | DX: S86.911A Strain of unspecified muscle(s) and tendon(s) at lower leg level, right leg, initial encounter (principal); Z88.8 Allergy status to other drugs, medicaments and biological substances; Z88.5 Allergy status to narcotic agent; Z88.2 Allergy status to sulfonamides; W00.0XXA Fall on same level due to ice and snow, initial encounter; Y93.01 Activity, walking, marching and hiking | CPT/HCPCS: 73562-26-RT; 73562-RT; 99283 ==

== ENCOUNTER 2022-01-30 13:13 | Emergency (ER) | payer MEDICAID ==
[2022-01-30] MEDS ORDERED: Sodium Chloride 0.9% 1,000 ML IV ONE (13:24)
[2022-01-30] MEDS ORDERED: methylPREDNISolone Sodium Succinate 125 MG/2 ML SDV IVPUSH ONE (13:24)
[2022-01-30 14:09] LABS: BLOOD UREA NITROGEN,BUN 11 mg/dL (7.0-18.0); CARBON DIOXIDE,CO2 24.5 mmol/L (21.0-32.0); CHLORIDE,CL 104 mmol/L (98-107); ESTIMATED GFR > 60.0 ml/min; GLUCOSE RANDOM 99 mg/dL (74-106); POTASSIUM,K 3.7 mmol/L (3.5-5.1); SODIUM,NA 140 mmol/L (136-145)
[2022-01-30] MEDS ORDERED: Acetaminophen/oxyCODONE 325-5 MG Tab PO ONE (15:52)
[2022-01-30] MEDS ORDERED: Iopamidol 755 MG/ML 500 ML Multipack Bottle IVPUSH ONE (17:43)
== END 2022-01-30 15:48 | disposition home or self-care (01) ==
LOC: MW.ED 13:13
DX: L03.211 Cellulitis of face (principal); Z88.5 Allergy status to narcotic agent; Z88.2 Allergy status to sulfonamides; Z88.8 Allergy status to other drugs, medicaments and biological substances
CPT/HCPCS: 36415; 70487; 70487-26; 80053; 85025; 86140; 96374; 99282; 99284-25; A9270-GY; J2930; J7030; Q9967